=== PATIENT | male | born 1995 | race African-American/Black ===

== ENCOUNTER 2017-09-14 10:23 | Emergency (ER) | payer SELFPAY ==
[2017-09-14 11:34] LABS: BASOPHILS 0.2 % (0-2); EOSINOPHILS 2.9 % (0-7); HEMATOCRIT 48.5 % (42.0-54.0); HEMOGLOBIN 16.7 g/dL (13.5-17.5); IMMATURE GRANULOCYTES 0.5 % (0-5); LYMPHOCYTES 18.2 % (15-50); MCH 30.1 pg (26.0-34.0); MCHC 34.4 g/dL (31.0-37.0); MCV 87.4 fL (80.0-100.0); MEAN PLATELET VOLUME 9.1 fL (7.4-10.4); MONOCYTES 10.4 % (2-11); NEUTROPHILS 67.8 % (40-80); PLATELET COUNT 284 10x3/uL (130-400); RBC 5.55 10x6/uL (4.20-6.10); RDW 13.4 % (11.5-14.5)
[2017-09-14 12:08] LABS: ALBUMIN 3.8 g/dL (3.4-5.0); ALKALINE PHOSPHATASE 63 U/L (46-116); ALT (SGPT) 60 U/L (10-68); BILIRUBIN - TOTAL 0.42 mg/dL (0.2-1.3); CALC OSMOLALITY 279 mosm/kg (275-300); CARBON DIOXIDE 27.8 mmol/L (21.0-32.0); CHLORIDE - SERUM 103 mmol/L (98-107); CREATININE - SERUM 1.1 mg/dL (0.6-1.3); GLUCOSE 97 mg/dL (74-106); POTASSIUM - SERUM 4.1 mmol/L (3.5-5.1); PROTEIN - SERUM 7.5 g/dL (6.4-8.2); SODIUM 141 mmol/L (136-145); UREA NITROGEN 9 mg/dL (7-18); eGFR NON AFRICAN AMERICAN 87 mL/min (90-120)
== END 2017-09-14 13:48 | disposition home or self-care (01) ==
LOC: D.ER 10:23
PROVIDERS: Physician Assistant
DX: J20.9 Acute bronchitis, unspecified (principal); J45.909 Unspecified asthma, uncomplicated; F17.200 Nicotine dependence, unspecified, uncomplicated

== ENCOUNTER 2020-01-16 19:39 | Emergency (ER) | payer SELFPAY ==
[~2020-01-16] VITALS: Ht 175.3 cm; Wt 79.5 kg
[2020-01-16 20:25] VITALS: BP 127/88; Ht 175.3 cm; Wt 79.5 kg
== END 2020-01-16 21:20 | disposition home or self-care (01) ==
LOC: D.ER 19:39
DX: N34.2 Other urethritis (principal); N36.9 Urethral disorder, unspecified

== ENCOUNTER 2020-07-24 23:31 | Emergency (ER) | payer SELFPAY ==
[~2020-07-24] VITALS: Ht 175.3 cm; Wt 77.3 kg
[~2020-07-24 23:31] MED LIST: VIBRAMYCIN 100100 MG PO
[2020-07-24 23:34] VITALS: BP 149/101; Ht 175.3 cm; Wt 77.3 kg
[2020-07-24 23:56] LABS: BILIRUBIN NEGATIVE (NEGATIVE); KETONE NEGATIVE (NEGATIVE); NITRITE NEGATIVE (NEGATIVE); UROBILINOGEN NORMAL mg/dL (< 2)
[2020-07-24 23:58] LABS: BACTERIA MODERATE HPF (NONE SEEN); SQUAMOUS EPITHELIAL 0-5 HPF (0-4); WHITE CELLS - URINE 25-50 HPF (0-1)
== END 2020-07-25 00:04 | disposition home or self-care (01) ==
LOC: D.ER 23:31
PROVIDERS: Family Medicine
DX: A54.9 Gonococcal infection, unspecified (principal); R36.9 Urethral discharge, unspecified

== ENCOUNTER 2020-09-02 17:34 | Emergency (ER) | payer SELFPAY ==
[~2020-09-02] VITALS: Ht 175.3 cm; Wt 80.0 kg
[2020-09-02 17:54] VITALS: BP 143/99; Ht 175.3 cm; Wt 80.0 kg
[2020-09-02 19:14] LABS: BILIRUBIN NEGATIVE (NEGATIVE); KETONE NEGATIVE (NEGATIVE); NITRITE NEGATIVE (NEGATIVE); UROBILINOGEN NORMAL mg/dL (< 2)
[2020-09-02 19:17] LABS: BACTERIA FEW HPF (NONE SEEN); WHITE CELLS - URINE 25-50 HPF (0-1)
== END 2020-09-02 20:37 | disposition home or self-care (01) ==
LOC: D.ER 17:34
PROVIDERS: Emergency Medicine
DX: R30.0 Dysuria (principal); Z20.2 Contact with and (suspected) exposure to infections with a predominantly sexual mode of transmission

== ENCOUNTER 2020-11-14 22:35 | Emergency (ER) | payer SELFPAY ==
[~2020-11-14] VITALS: Ht 175.3 cm; Wt 81.4 kg
[2020-11-14 22:39] VITALS: BP 137/92; Ht 175.3 cm; Wt 81.4 kg
[2020-11-14 23:37] LABS: BACTERIA FEW HPF (<MOD); BILIRUBIN NEGATIVE (NEGATIVE); KETONE TRACE mg/dL (< 1+); NITRITE NEGATIVE (NEGATIVE); SQUAMOUS EPITHELIAL 1 HPF (0-4); UROBILINOGEN 3 mg/dL (< 2); WHITE CELLS - URINE 16 HPF (0-1)
[2020-11-16 16:08] LABS: CHLAMYDIA TRACHOMATIS, NAA Negative (Negative)
== END 2020-11-15 00:28 | disposition left against medical advice (07) ==
LOC: D.ER 22:35
PROVIDERS: Emergency Medicine
DX: Z20.2 Contact with and (suspected) exposure to infections with a predominantly sexual mode of transmission (principal)